=== PATIENT | male | born 1950 | race Caucasian/White ===

== ENCOUNTER 2016-08-20 14:27 | Emergency (ER) | payer MEDICARE ==
[~2016-08-20] VITALS: Ht 170.2 cm; Wt 112.0 kg
[~2016-08-20 14:27] MED LIST: BENZ100 PO; COUM2TAB PO; PRED10 PO; SIMV20 PO; Z-pak
[2016-08-20 14:30] VITALS: BP 167/93; PULSE 81; RESP 15; TEMP 98.2; O2SAT 95
--- NOTE | 2016-08-20 15:36 | PD ---
HPI Chief Complaint: Abnormal Results Time Seen by Provider: 15:36 Travel History International Travel<30 days: No Contact w/Intl Traveler<30days: No Traveled to known affect area: No History of Present Illness HPI 65-year-old male coming in with reports of hyperglycemia. Patient reports history of polydipsia, polyuria, and recent blurred vision occasionally. Patient states no history of diabetes prior to this visit. Patient states he noticed these symptoms of polydipsia and polyuria gradually over the past several weeks. Patient was recently seen for bronchitis, placed on azithromycin 3 days ago. Patient states his neighbor noted his symptoms, and checked his blood sugar. Yesterday it was 326. He is scheduled to see a local primary care physician next Tuesday, but when his blood sugar was checked again today it was 428, his became concerned and he was brought to the emergency department. Patient currently has no pain, headache, his cough is improving, no chest pain, no abdominal pain, nausea, vomiting, or other symptoms. Patient is only taking hypercholesterolemia meds. He has no other significant medical history. He is allergic to nuclear stress medication but otherwise no known drug allergies. PFSH Past Medical History Arthritis: Yes Autoimmune Disease: No Anxiety: Yes (ANXIETY ATTACKS ) Depression: No Heart Rhythm Problems: No Cancer: No Cardiac Catheterization: No Cardiovascular Problems: No High Cholesterol: Yes Chest Pain: No Congestive Heart Failure: No Diabetes: No Endocrine: No Genitourinary: No Hypertension: No Immune Disorder: No Musculoskeletal: No Neurologic: No Psychiatric: Yes (CLAUSTRAPHOBIA) Reproductive: No Respiratory: Yes Myocardial Infarction: No Past Surgical History Abdominal Surgery: Yes (HERNIA SURGERY) Coronary Artery Bypass Graft: No Genitourinary Surgery: Yes (PROSTATE BIOPSY ) Joint Replacement: Yes (LEFT HIP) Social History Alcohol Use: No Tobacco Use: No Substance Use: No Allergies-Medications (Allergen,Severity, Reaction): Coded Allergies: See Uncoded Allergy/Adv Reaction (Verified Allergy, Unknown, 08/20/16) Uncoded Allergies: NUCLEAR STRESS TEST MED (Allergy, Severe, SEVERE FLUSHING, DIAPHORESIS, 30/07) Reported Meds & Prescriptions Reported Meds & Active Scripts Active Reported Azithromycin 250 Mg Tab 250 Mg PO DIRECTED Take 2 tabs (500 mg) on day 1 then 1 tab daily x 4 days. Lipitor (Atorvastatin Calcium) 20 Mg Tab 20 Mg PO HS Review of Systems Except as stated in HPI: all other systems reviewed are Neg General / Constitutional: No: Fever Eyes: Positive: Blurred Vision (intermittently.), No: Visual changes HENT: No: Headaches Cardiovascular: No: Chest Pain or Discomfort Respiratory: Positive: Cough (improving.), No: Shortness of Breath, Wheezing, Sneezing Gastrointestinal: No: Nausea, Vomiting, Diarrhea, Abdominal Pain Genitourinary: No: Dysuria Musculoskeletal: No: Weakness, Pain Skin: No Rash Neurologic: No: Weakness, Dizziness, Syncope, Focal Abnormalities, Coordination Problem, Tremor, Ataxia, Headache, Change in Mentation, Slurred Speech, Paresthesia, Incontinence, Seizures, Sensory Disturbance Psychiatric: No: Depression Endocrine: Positive: Polyuria, Polydipsia Hematologic/Lymphatic: No: Easy Bruising Physical Exam Narrative GENERAL: Moderately obese Patient who appears in good spirits in no acute distress. SKIN: Warm and dry. Normal color. Normal turgor. HEAD: Atraumatic. Normocephalic. EYES: Pupils equal and round. No scleral icterus. No injection or drainage. ENT: No nasal bleeding or discharge. Mucous membranes pink and moist. Pharynx is normal. NECK: Trachea midline. No JVD. Supple nontender. CARDIOVASCULAR: Regular rate and rhythm. No murmurs gallops or rubs. RESPIRATORY: No accessory muscle use. Clear to auscultation. Breath sounds equal bilaterally. GASTROINTESTINAL: Abdomen soft, non-tender, nondistended. Hepatic and splenic margins not palpable. MUSCULOSKELETAL: Extremities without clubbing, cyanosis, or edema. No obvious deformities. NEUROLOGICAL: Awake and alert. No obvious cranial nerve deficits. Motor grossly within normal limits. Five out of 5 muscle strength in the arms and legs. Normal speech. PSYCHIATRIC: Appropriate mood and affect; insight and judgment normal. Data Data Last Documented VS Vital Signs Date Time Temp Pulse Resp B/P Pulse Ox O2 Delivery O2 Flow Rate FiO2 08/20/16 16:09 67 15 129/75 95 Room Air 08/20/16 14:30 98.2 Orders Electrocardiogram (08/20/16 15:46) Complete Blood Count With Diff (08/20/16 15:46) Comprehensive Metabolic Panel (08/20/16 15:46) Magnesium (Mg) (08/20/16 15:46) Phosphorus (Po4) (08/20/16 15:46) Beta Hydroxybutyrate (Acetone) (08/20/16 15:46) Osmolality,Serum (08/20/16 15:46) Urinalysis - C+S If Indicated (08/20/16 15:46) Blood Gas Venous (Vbg) (08/20/16 15:46) Blood Glucose (08/20/16 15:46) Ecg Monitoring (08/20/16 15:46) Iv Access Insert/Monitor (08/20/16 15:46) Oximetry (08/20/16 15:46) NPO (08/20/16 15:46) Sodium Chlor 0.9% 1000 Ml Inj (Ns 1000 M (08/20/16 15:46) Sodium Chlor 0.9% 1000 Ml Inj (Ns 1000 M (08/20/16 16:16) Sodium Chloride 0.9% Flush (Ns Flush) (08/20/16 16:00) Urinary Catheter Insert/Apply (08/20/16 17:19) Labs Laboratory Tests Test 08/20/16 08/20/16 16:00 16:22 White Blood Count 7.6 TH/MM3 Red Blood Count 5.11 MIL/MM3 Hemoglobin 14.7 GM/DL Hematocrit 42.6 % Mean Corpuscular Volume 83.3 FL Mean Corpuscular Hemoglobin 28.7 PG Mean Corpuscular Hemoglobin 34.5 % Concent Red Cell Distribution Width 13.4 % Platelet Count 186 TH/MM3 Mean Platelet Volume 9.8 FL Neutrophils (%) (Auto) 65.4 % Lymphocytes (%) (Auto) 23.8 % Monocytes (%) (Auto) 8.3 % Eosinophils (%) (Auto) 1.7 % Basophils (%) (Auto) 0.8 % Neutrophils # (Auto) 5.0 TH/MM3 Lymphocytes # (Auto) 1.8 TH/MM3 Monocytes # (Auto) 0.6 TH/MM3 Eosinophils # (Auto) 0.1 TH/MM3 Basophils # (Auto) 0.1 TH/MM3 CBC Comment DIFF FINAL Differential Comment Sodium Level 135 MEQ/L Potassium Level 4.1 MEQ/L Chloride Level 99 MEQ/L Carbon Dioxide Level 29.6 MEQ/L Anion Gap 6 MEQ/L Blood Urea Nitrogen 12 MG/DL Creatinine 1.10 MG/DL Estimat Glomerular Filtration 67 ML/MIN Rate Random Glucose 269 MG/DL Calcium Level 9.0 MG/DL Phosphorus Level 2.8 MG/DL Magnesium Level 2.1 MG/DL Total Bilirubin 0.6 MG/DL Aspartate Amino Transf 21 U/L (AST/SGOT) Alanine Aminotransferase 37 U/L (ALT/SGPT) Alkaline Phosphatase 81 U/L Total Protein 7.4 GM/DL Albumin 4.0 GM/DL B-Hydroxybutyrate 0.74 MMOL/L Blood Gas Puncture Site RAC Blood Gas Patient Temperature 98.6 Venous Blood pH 7.37 Venous Blood Partial Pressure 48 mmHg CO2 Venous Blood Partial Pressure 24 mmHg O2 Venous Blood HCO3 27 mmol/L Venous Blood Oxygen Saturation 40 % Venous Blood Oxygen Content 7.7 Vol % Venous Blood Base Excess 2.6 mmol/L Oxygen Delivery Device RA Blood Gas Inspired Oxygen 21 % MDM Medical Decision Making Medical Screen Exam Complete: Yes Emergency Medical Condition: Yes Differential Diagnosis New-onset hyperglycemia. New-onset Type 2 diabetes. Ketoacidosis. Narrative Course Patient is medically stable at time of exam. Stat finger blood glucose is ordered as well as a acetone level, venous blood gas, CBC, CMP, magnesium, phosphorus, urinalysis, serum osmolality. EKG is ordered. IV access is obtained patient is given a 2 L normal saline bolus. We'll await finger blood second prior to ordering any insulin. Bedside Blood Glucose is 295. Labs did not indicate ketoacidosis. Labs are reviewed with Dr. Urbina. Patient is given 1 L normal saline bolus. Second liter is canceled. Patient is felt to be stable to go home. Patient will be started on Glucophage 500 mg twice a day. Patient should watch his diet for carbohydrates and sugars as discussed. Patient should follow with his primary care physician Tuesday as currently scheduled. Patient may return the emergency department anytime as needed. Diagnosis Primary Impression: Type 2 diabetes mellitus Qualified Code: E11.9 - Type 2 diabetes mellitus without complication, without long-term current use of insulin Referrals: Primary Care Physician Patient Instructions: Basic Carbohydrate Counting (DC), Diabetes and Your Skin (ED), Diabetic Hyperglycemia (ED), General Instructions Additional Instructions: Labs did not indicate ketoacidosis. Labs are reviewed with Dr. Urbina. Patient is given 1 L normal saline bolus. Second liter is canceled. Patient is felt to be stable to go home. Patient will be started on Glucophage 500 mg twice a day. Patient should watch his diet for carbohydrates and sugars as discussed. Patient should follow with his primary care physician Tuesday as currently scheduled. Patient may return the emergency department anytime as needed. Med/Other Pt SpecificInfo: Prescription(s) given Disposition: 01 DISCHARGE HOME Condition: Stable Leo Cerda Aug 20, 2016 15:36
[2016-08-20 15:45] VITALS: BP 147/74; PULSE 72; RESP 16; O2SAT 95
[2016-08-20] MEDS ORDERED: SODIUM CHLOR 0.9% 1000 ML INJ 1,000 ML IV ONE ×2 (15:46→16:16)
[2016-08-20] MEDS ORDERED: LIPI20TA PO (15:50)
[2016-08-20] MEDS ORDERED: AZIT250T3 PO (15:50)
[2016-08-20 16:04] VITALS: O2SAT 97
[2016-08-20 16:09] VITALS: BP 129/75; PULSE 67; RESP 15; O2SAT 95
[2016-08-20] MEDS: SODIUM CHLORIDE 0.9% FLUSH 5 ML FLUSH IVF PRN ×2 (16:12→17:19)
[2016-08-20 16:33] LABS: BLOOD GAS VENOUS BASE EXCESS 2.6 mmol/L (-2-2); BLOOD GAS VENOUS HCO3 27 mmol/L (22-26); BLOOD GAS VENOUS O2 CONTENT 7.7 Vol % (9.0-17.0); BLOOD GAS VENOUS O2 HGB SAT 40 % (70-76); BLOOD GAS VENOUS PCO2 48 mmHg (44-48); BLOOD GAS VENOUS PO2 24 mmHg (35-40); BLOOD GAS VENOUS pH 7.37 (7.360-7.400); TEMP CORR TO 98.6
[2016-08-20 16:34] LABS: CRITICAL VALUE YES
[2016-08-20 16:35] LABS: DRAW SITE RAC; FIO2 21 %; OXYGEN DEVICE RA; STAT YES
[2016-08-20 16:37] LABS: BASOPHIL # 0.1 TH/MM3 (0-0.2); BASOPHIL % 0.8 % (0.0-2.0); EOSINOPHIL # 0.1 TH/MM3 (0-0.4); EOSINOPHIL % 1.7 % (0.0-4.0); HEMATOCRIT 42.6 % (39.0-51.0); HEMO FLAGS DIFF FINAL; LYMPH % 23.8 % (9.0-44.0); LYMPHOCYTE # 1.8 TH/MM3 (1.0-4.8); MEAN CELL VOLUME 83.3 FL (80.0-100.0); MEAN CORPUSCULAR HEMOGLOBIN 28.7 PG (27.0-34.0); MEAN CORPUSCULAR HGB CONC 34.5 % (32.0-36.0); MONO % 8.3 % (0.0-8.0); NEUT % 65.4 % (16.0-70.0); PLATELET COUNT 186 TH/MM3 (150-450); RED BLOOD COUNT 5.11 MIL/MM3 (4.50-5.90); RED CELL DISTRIBUTION WIDTH 13.4 % (11.6-17.2); WHITE BLOOD COUNT 7.6 TH/MM3 (4.0-11.0)
[2016-08-20 16:52] LABS: ALT (GPT) 37 U/L (12-78); ANION GAP 6 MEQ/L (5-15); AST (GOT) 21 U/L (15-37); BICARBONATE 29.6 MEQ/L (21.0-32.0); BLOOD UREA NITROGEN 12 MG/DL (7-18); CHLORIDE 99 MEQ/L (98-107); GLOMERULAR FILTRATION RATE 67 ML/MIN (>89); MAGNESIUM 2.1 MG/DL (1.5-2.5); POTASSIUM 4.1 MEQ/L (3.5-5.1); SODIUM (NA) 135 MEQ/L (136-145)
[2016-08-20 16:54] LABS: ALKALINE PHOSPHATASE 81 U/L (45-117); BETA-HYDROXYBUTYRATE 0.74 MMOL/L (0.00-0.39); TOTAL BILIRUBIN ADULT 0.6 MG/DL (0.2-1.0)
[2016-08-20 17:00] VITALS: BP 158/74; PULSE 62; RESP 15; O2SAT 97
[2016-08-20] MEDS ORDERED: METF500T PO (17:32)
[2016-08-20 17:46] LABS: BLOOD, URINE NEG (NEG); COMMENT (UR) CULT NOT INDICATED; CULTURE IF INDICATED CULT NOT INDICATED; GLUCOSE,URINE 1000 mg/dL (NEG); KETONE, URINE 40 mg/dL (NEG); MUCUS URINE FEW /lpf (OCC); NITRITE,URINE NEG (NEG); SQUAMOUS EPITHELIAL CELL URINE <1 /hpf (0-5); URINE COLOR YELLOW (YELLW/STRAW)
[2016-08-20 18:00] VITALS: BP 150/71; PULSE 58; RESP 21; O2SAT 98
[2016-08-20] MEDS ORDERED: metFORMIN HCL 500 MG TAB PO ONE (19:15)
--- NOTE | 2016-08-20 21:55 | EKG ---
Date Performed: 08/20/2016 Time Performed: 16:18:52 PTAGE: 65 years EKG: Sinus rhythm Age Indeterminate INFERIOR MYOCARDIAL INFARCTION ABNORMAL ECG PREVIOUS TRACING : 09/30/2011 15.48 Since previous tracing, no significant change noted DOCTOR: Nishant Ewing Interpretating Date/Time 08/20/2016 21:55:23
== END 2016-08-20 19:28 | disposition home or self-care (01) ==
LOC: NEPC 14:27
DX: E11.65 Type 2 diabetes mellitus with hyperglycemia (principal); E78.00 Pure hypercholesterolemia, unspecified
CPT/HCPCS: 80053; 81001; 82010; 82805; 83735; 83930; 84100; 85025; 93005; 96360; 96361; 99285; J7030